=== PATIENT | female | born 1945 | race Caucasian/White ===

== ENCOUNTER 2017-02-06 07:27 | Day surgery (SDC) | payer BC ==
[~2017-02-06] VITALS: Ht 165.1 cm; Wt 54.1 kg
[2017-02-06] MEDS ORDERED: EPA FISH OIL1 SGL PO (07:41)
[2017-02-06] MEDS ORDERED: CENTRUM SILVER1 TAB PO (07:42)
[2017-02-06] MEDS ORDERED: CITRACAL + D CA1 TAB PO (07:42)
[2017-02-06] MEDS ORDERED: NIACIN 64 MG-501 TA1 PO (07:43)
[2017-02-06] MEDS ORDERED: VITAMIN D 1001000 IU PO (07:43)
[2017-02-06] MEDS ORDERED: TURMERIC500 MG PO (07:44)
[2017-02-06] MEDS ORDERED: ASPIRIN 81M81 MG/TA2 PO (07:44)
[2017-02-06] MEDS ORDERED: TYLENOL SINUS1 EACH PO (07:45)
[2017-02-06] MEDS ORDERED: ZANTAC 150MG T150 MG PO (07:45)
[2017-02-06] MEDS ORDERED: RECLAST5 MG/100 M (07:46)
[2017-02-06 08:13] VITALS: BP 137/72; PULSE 71; TEMP 97
[2017-02-06 09:00] VITALS: BP 110/57; PULSE 83; TEMP 99
[2017-02-06 09:15] VITALS: BP 105/60; PULSE 71
[2017-02-06 09:30] VITALS: BP 101/56; PULSE 74
== END 2017-02-06 10:16 | disposition home or self-care (01) ==
LOC: SDCO 07:27
DX: K21.0 Gastro-esophageal reflux disease with esophagitis (principal); K22.70 Barrett's esophagus without dysplasia; K30 Functional dyspepsia; E78.00 Pure hypercholesterolemia, unspecified; F32.9 Major depressive disorder, single episode, unspecified; K64.9 Unspecified hemorrhoids; M81.0 Age-related osteoporosis without current pathological fracture
CPT/HCPCS: OP; J2250; J3010; J7030

== ENCOUNTER → 2020-06-20 | Outpatient (CLI) | payer MEDICARE, BC ==
[~2020-06-20] MED LIST: ASPIRIN 81M81 MG/TA2 PO; CENTRUM SILVER1 TAB PO; CITRACAL + D CA1 TAB PO; EPA FISH OIL1 SGL PO; NIACIN 64 MG-501 TA1 PO; RECLAST5 MG/100 M; TURMERIC500 MG PO; TYLENOL SINUS1 EACH PO; VITAMIN D 1001000 IU PO; ZANTAC 150MG T150 MG PO
== END ==
LOC: COL.RAD 07:49
DX: K86.89 Other specified diseases of pancreas (principal); R10.13 Epigastric pain; K22.70 Barrett's esophagus without dysplasia; R93.5 Abnormal findings on diagnostic imaging of other abdominal regions, including retroperitoneum; R10.11 Right upper quadrant pain; R11.0 Nausea
CPT/HCPCS: Q9967

== ENCOUNTER → 2022-06-06 | Outpatient (CLI) | payer MEDICARE, BC | LOC: COL.RAD 10:17 | DX: K22.70 Barrett's esophagus without dysplasia (principal); R07.89 Other chest pain; R10.11 Right upper quadrant pain; K21.9 Gastro-esophageal reflux disease without esophagitis; R13.10 Dysphagia, unspecified; K86.2 Cyst of pancreas; Z90.49 Acquired absence of other specified parts of digestive tract ==